=== PATIENT | female | born 1950 | race Caucasian/White ===

== ENCOUNTER 2021-06-26 19:14 | Emergency (ER) | payer OTHER, MEDICARE ==
[~2021-06-26] VITALS: Ht 152.4 cm; Wt 52.6 kg
[~2021-06-26 19:14] MED LIST: ASPI81CH PO; Amlodipine Bes2.5 MG PO; CEPH500 PO; CHOL10002 PO; Complex B-1001 EACH PO; Cyclobenzaprine5 MG PO; MAGNESIUM CITR125 MG PO; METO25ER PO; Norco 5-325 Ta1 EACH PO; PROBIOTIC1 EAC1 PO; Prednisone20 MG PO; TRIBENZOR 20-51 EACH PO
[2021-06-27] MEDS ORDERED: Cyclobenzaprine5 MG PO (00:12)
== END 2021-06-27 00:19 | disposition home or self-care (01) ==
LOC: ER 19:14
DX: S16.1XXA Strain of muscle, fascia and tendon at neck level, initial encounter (principal); S39.012A Strain of muscle, fascia and tendon of lower back, initial encounter; I10 Essential (primary) hypertension; Z79.82 Long term (current) use of aspirin; Z79.899 Other long term (current) drug therapy; V64.5XXA Driver of heavy transport vehicle injured in collision with heavy transport vehicle or bus in traffic accident, initial encounter
CPT/HCPCS: 72040; 72100; 72125; 99284-25; A9270

== ENCOUNTER → 2023-09-10 | Outpatient (CLI) | payer MEDICARE, OTHER ==
[~2023-09-10] MED LIST changes: +BENZ100A PO; +CLIMARA1 EACH TOP; +NYSTRIT TOP; +[UNRECOGNIZED DRUG - OTHER]
[2023-09-10 17:12] LABS: Source, Urine Clean Catch
[2023-09-10 18:30] LABS: Appearance, Urine Cloudy (Clear); Bilirubin, Urine Neg (Neg); Blood, Urine 1+ (Neg); Color, Urine Yellow (P-Yellow); Glucose Qualitative, Urine Neg (Neg); Ketones, Urine Neg (Neg); Leukocyte Esterase, Urine Neg (Neg); Nitrite, Urine Neg (Neg); Protein, Urine Neg (Neg); Urobilinogen, Urine NORM (Normal)
[2023-09-10 18:49] LABS: Amorphous Heavy (0-Heavy); Bacteria Few /hpf; Red Blood Cells, Urine 0-2 /hpf (0-2); Squamous Epithelial Cells Rare /hpf (Few); White Blood Cells, Urine 0-2 /hpf (0-5)
== END ==
LOC: LAB 17:11 → LAB SHORT 17:11
PROVIDERS: Obstetrics & Gynecology
DX: Z78.9 Other specified health status (principal)
CPT/HCPCS: 81001

== ENCOUNTER 2023-09-17 09:41 | Day surgery (SDC) | payer MEDICARE, OTHER ==
[~2023-09-17] VITALS: Ht 144.8 cm; Wt 47.7 kg
[2023-09-17] VITALS (10 sets, daily range): BP systolic 144–174; BP diastolic 74–90
[~2023-09-17 09:41] MED LIST changes: -[UNRECOGNIZED DRUG - OTHER]
[2023-09-17] MEDS ORDERED: [UNRECOGNIZED DRUG - OTHER] (10:55)
--- NOTE | 2023-09-17 11:19 | NUR ---
Ambulatory in Day SurgeryPre-Op teaching done. Pt verbalizes understanding. History, Chart, Medications and Allergies reviewed before start of procedure.Patient confirms NPO status and agrees with scheduled surgery. Patient States Post-Procedure ride home has been arranged.
--- NOTE | 2023-09-17 12:48 | NUR ---
09/17/23 OLIVA ELI 8ML BUPIVACAINE 0.5% W/EPI WAS INJECTED TO OPSITE BY DR CAIN DURING OR CASE.
--- NOTE | 2023-09-17 13:40 | NUR ---
PT TO STEP DOWN, STATES "UNCOMFORTABLE" 2/10 PAIN, EATING CHEESE AND TOLERATING WATER. REPORT TO RAMON TERRY. RIDE HOME MARK ANTHONY, , IS ON HIS WAY IN.
--- NOTE | 2023-09-17 14:45 | NUR ---
Patient up to Ambulate independently. Gait steady. Discharge instructions reviewed with patient. Patient verbalizes understanding. Copy given to patient to take home. Discharged via wheelchair to private car for ride home. PATIENT REPORTS ABLE TO VOID WITHOUT ISSUES.
== END 2023-09-17 23:00 | disposition home or self-care (01) ==
LOC: ORSCMMR 09:41 → ORD 11:45 → ORSCMMR 11:45
PROVIDERS: Obstetrics & Gynecology
PROC: 0JQC0ZZ Repair Pelvic Region Subcutaneous Tissue and Fascia, Open Approach (ICD-10-PCS; principal; 2023-09-17 11:45)
DX: N81.5 Vaginal enterocele (principal); N81.6 Rectocele; I10 Essential (primary) hypertension; Z79.899 Other long term (current) drug therapy
CPT/HCPCS: A9270; J1100; J2250; J2371; J2405; J2704; J3010; J7120